=== PATIENT | female | born 1950 | race Caucasian/White ===

== ENCOUNTER 2017-01-20 12:39 | Emergency (ER) | payer OTHER ==
[~2017-01-20] VITALS: Ht 170.2 cm; Wt 53.5 kg
[~2017-01-20 12:39] MED LIST: FLUO10CA26 PO
--- NOTE | 2017-01-20 13:14 | NUR ---
PATIENT TO ED DT RIGHT KNEE PAIN SP FALL DAYS AGO. PATIENT ALSO CONCERN OF HER RIGHT HAND RING FINGER SWLLING
[2017-01-20 17:12] VITALS: BP 110/70
== END 2017-01-20 17:13 | disposition home or self-care (01) ==
LOC: ER 12:41
DX: S83.91XA Sprain of unspecified site of right knee, initial encounter (principal); S60.414A Abrasion of right ring finger, initial encounter; L08.9 Local infection of the skin and subcutaneous tissue, unspecified; F32.9 Major depressive disorder, single episode, unspecified; M19.90 Unspecified osteoarthritis, unspecified site; Z23 Encounter for immunization; W18.39XA Other fall on same level, initial encounter; Y93.89 Activity, other specified; Y92.89 Other specified places as the place of occurrence of the external cause; Y99.8 Other external cause status
CPT/HCPCS: 73564; 99284; A4606; Z7610